=== PATIENT | female | born 1930 | race American Indian/Alaskan Native ===

== ENCOUNTER 2017-12-02 13:52 | Outpatient (CLI) | payer MEDICARE ==
--- NOTE | 2017-12-02 20:18 | XRay Report ---
FINAL REPORT EXAM: XR KNEE BILAT 4+V HISTORY: BILATERAL KNEE PAIN TECHNIQUE: Four views of the bilateral knees were performed Comparison: None FINDINGS: Global osteopenia. Bilateral medial femoral condylar squaring and medial joint space narrowing. Tibial spine blunting. Patellofemoral degenerative osteophytic change. No fracture or dislocation. 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
== END 2017-12-02 13:53 | disposition home or self-care (01) ==
LOC: SPVIMAG 13:52
PROVIDERS: ATTEND Orthopaedic Surgery Sports Medicine
DX: M17.0 Bilateral primary osteoarthritis of knee (principal); M85.861 Other specified disorders of bone density and structure, right lower leg; M85.862 Other specified disorders of bone density and structure, left lower leg